=== PATIENT | female | born 1990 | race Caucasian/White ===

== ENCOUNTER → 2018-04-15 14:38 | Outpatient (CLI) | payer MEDICAID, SELFPAY ==
--- NOTE | 2018-04-15 16:05 | FLU_PTH ---
PATIENT: GREG LALA LOC: [facility] U#:[id number] AGE/SX: 34/F ROOM: RE04/15/[address]: Dr. Martita Avalos MD : 1990 BED: DIS: SPEC #: [id number] RECD: 04/16/18 14:12 STATUS: GEORGES REMarlen #: [id number] RUPALI: 04/15/18 16:[address]: Martita Avalos DEPT: CYTOLOGY RECD BY: Leoncio Mckeon ENTERED: 04/19/18 08:52 SP TYPE: Fluid OTHR DR: No Primary Care Phys Tissues: A - Thyroid gland, NOS B - Thyroid gland, NOS C - Thyroid gland, NOS D - Thyroid gland, NOS Procedures: Pap Stain (control) Special Stain Group II Surgery Specimen Level IV Cell Block Cytospin Fluid Cytology Other HEADER OPERATION: Ultrasound guided fine needle aspiration bilateral thyroid PRE-OP DIAGNOSIS: Thyroid nodules TISSUE SUBMITTED: A. FNA, right thyroid fluid, B. FNA, right thyroid 8 slides, C. FNA, left thyroid fluid, D. FNA, left thyroid 8 slides DIAGNOSIS CYTOLOGY A. Right thyroid fluid, FNA (cytospin and cell block): Negative for malignant cells. See cytology study and comment. B. Right thyroid nodule, FNA (smears): Consistent with benign colloid nodule with cystic changes. See cytology study and comment. C. Left thyroid fluid, FNA (cytospin and cell block): Negative for malignant cells. See cytology study and comment. D. Left thyroid nodule, FNA (smears): Consistent with benign follicular nodule. See cytology study and comment. SJ:rg 04/20/18 COMMENT Immediate cytologic evaluation to determine adequacy is not applicable. D. The findings may represent adenomatoid colloid nodule. Correlation with clinical, radiologic findings and appropriate follow up are necessary. Please make reference to previous specimen ([id number]) FNA, right thyroid nodule with diagnosis of consistent with cellular colloid nodule and FNA, left thyroid nodule with diagnosis of consistent with cellular colloid nodule with cystic changes. CYTOLOGY STUDY Slides are reviewed. A. The specimen consists of benign follicular cells and macrophages. B. The specimen is adequate for evaluation. The specimen consists of benign follicular cells, colloid and numerous macrophages. C. The specimen consists of benign follicular cells. D. The specimen is adequate for evaluation. The smears are cellular and consists of benign follicular cells and small amount of colloid. CYTOLOGY GROSS A. Received is 25 ml of beige hazy fluid labeled with the patient's name and and designated per the requisition as FNA right thyroid. Submitted for cytology preparation including cell block. B. Received are 8 smears labeled with the patient's name and designated per the requisition as FNA right thyroid. Submitted for staining. C. Received is 25 ml of cloudy brown fluid labeled with the patient's name and and designated per the requisition as FNA left thyroid. Submitted for cytology preparation including cell block. D. Received are 8 smears labeled with the patient's name and designated per the requisition as FNA left thyroid. Submitted for staining. / CC:cc 04/19/18 TC:5 CPT:42996 x2, 61422 x2, 96047 x2
== END ==
PROVIDERS: Visit Provider Surgery
DX: E04.1 Nontoxic single thyroid nodule (principal)
CPT/HCPCS: 88108; 88161; 88305; 88313

== ENCOUNTER 2019-12-08 13:05 | Emergency (ER) | payer MEDICAID, SELFPAY ==
[2019-12-08 13:05] VITALS: BP 122/78; PULSE 89; RESP 16; TEMP 36.1; O2SAT 99; BMI 29.9
--- NOTE | 2019-12-08 13:19 | ED.DCSUM_ITS ---
- ER Visit Summary Date of Service: 12/08/19 Chief Complaint: Right hand injury after tripping and falling going up steps. History of Present Illness: The patient is a 29 F no seen in past medical history. Was walking up steps. Tripped fell forward caught herself with her right hand injuring the right small finger metacarpal. She is right-hand dominant. No prior history or surgery to that hand. No other injuries. She did not hit her head. Physical Examination: Well-appearing young female. Vital signs stable afebrile. HEENT exam normal atraumatic nontender. C-spine nontender. Lungs are clear. Heart regular rhythm. No murmur. Chest were nontender. Abdomen soft nonte nder. Pelvic girdle intact. Left upper and both lower extremities are nontender with normal range of motion and strength and sensation. Her right shoulder elbow and wrist are nontender nonswollen. Her right hand is swollen and tender primarily over the small finger or fifth metacarpal. Most likely a fracture. Skin is closed. She is able to open and close her hand. Is neurovascular intact. Neurologically she is awake alert with no focal motor deficits. Test Results: Right hand 3 views read by myself and the radiologist shows a midshaft spiral fracture of the fifth or small metacarpal. I went over the x- ray with the patient's. Emergency Department Course and Treatment: Patient treated with [place] for pain. I suspect she has a broken right hand. Treatment Plan: Short arm ulnar gutter splint on the right hand. Ice and elevate. Motrin and [place] for pain. Follow-up with orthopedics. Disposition: Discharge Impression: Tripped and fell Acute right hand fifth or small metacarpal fracture. Short arm ulnar gutter splint by ER This note was generated with [employer] dictation software. It may contain incorrect words, spelling, and punctuation that were not noted in review of the chart prior to signing ED Disposition - Plan for ED Patient: Referrals: Care Physician,No Primary [Primary Care Provider] -
--- NOTE | 2019-12-08 13:20 | RAD_ITS ---
STUDY: X-RAY - RIGHT HAND REASON FOR EXAM: Female, 29 years old. FELL UP THE STAIRS. PAIN 3RD-5TH METACARPALS TECHNIQUE: 3 view(s) of the hand. COMPARISON: None. FINDINGS: Normal radiocarpal articulation. Normal distal radioulnar joint. Normal visualized carpal bones. Normal carpal articulations Normal carpometacarpal articulation of the thumb. Normal second through fifth carpometacarpal joints. Nondisplaced spiral fracture through the midportion of the fifth metacarpal. Normal metacarpophalangeal joint of the thumb. Normal interphalangeal joint of the thumb. Normal proximal and distal phalanges of the thumb. Normal metacarpophalangeal joints of the second through fifth fingers. Normal proximal and distal interphalangeal joints of the second through fifth fingers. Normal phalanges of the second through fifth fingers. Soft tissue swelling. RAD/Hand Min 3 Views IMPRESSION: Nondisplaced spiral fracture through the midportion of the fifth metacarpal with overlying soft tissue swelling. Electronically Signed: Shahriar Munoz, at 13:39 EDT , Service support ,
[2019-12-08] MEDS: HYDROcodone Bitartrate/Apap 5/325 Tablet PO (13:25)
--- NOTE | 2019-12-08 14:03 | DCINST.ED_ITS ---
ED Disposition - Plan for ED Patient: Disposition: Home or Assisted Living Instructions: FRACTURE, Hand (Closed) Prescriptions: Hydrocodone Bitart/Apap 5-325 [[place] 5MG-325MG] 1 - 2 tab PO Q4H PRN PRN 5 Days #14 tab PRN Reason: Pain Prescription Printed Referrals: Stewart Garcia MD [STAFF PHYSICIAN] - As soon as possible Additional Instructions: Ice and elevate right hand to decrease pain and swelling. [place] for pain and Motrin for pain and swelling. Follow-up with orthopedic physician to have further evaluation hand and most likely casting.
== END 2019-12-08 14:17 | disposition home or self-care (01) ==
PROVIDERS: Emergency Provider Emergency Medicine
DX: S62.306A Unspecified fracture of fifth metacarpal bone, right hand, initial encounter for closed fracture (principal); F17.220 Nicotine dependence, chewing tobacco, uncomplicated; W10.9XXA Fall (on) (from) unspecified stairs and steps, initial encounter
CPT/HCPCS: 73130; 99283

== ENCOUNTER → 2020-10-22 11:08 | Outpatient (CLI) | payer MEDICAID, SELFPAY ==
[2020-10-24 09:46] LABS: HPV APTIMA, High Risk Negative (Negative)
[2020-10-24 09:47] LABS: HPV Reflexed? YES, CHARGE PATIENT
== END ==
PROVIDERS: Visit Provider Student in an Organized Health Care Education/Training Program
DX: Z12.4 Encounter for screening for malignant neoplasm of cervix (principal)
CPT/HCPCS: 87624; 88175; G0145

== ENCOUNTER → 2021-04-16 15:10 | Outpatient (CLI) | payer MEDICAID, SELFPAY ==
--- NOTE | 2021-04-16 11:30 | LES_PTH ---
PATIENT: GREG LALA LOC: [facility] U#:[id number] AGE/SX: 34/F ROOM: RE04/16/[address]: Dr. Abram Sutherland MD : 1990 BED: DIS: SPEC #: [id number] RECD: 04/17/21 08:35 STATUS: GEORGES SRINIVAS #: [id number] RUPALI: 04/16/21 11:[address]: Abram Sutherland DEPT: SURGICAL PATHOLOGY RECD BY: Toyin Oshea ENTERED: 04/17/21 08:35 SP TYPE: Lesion OTHR DR: No Primary Care Phys Tissues: Skin of eyelid, NOS Procedures: Surgery Specimen Level IV HEADER OPERATION: Lesion removal left upper lid PRE-OP DIAGNOSIS: Present since May 2020, papilloma, increased size TISSUE SUBMITTED: Lesion left upper lid MICROSCOPIC DIAGNOSIS Lesion of left upper eyelid, biopsy: Consistent with benign fibroepithelial polyp. AM:richelle 04/18/2021 MICROSCOPIC DESCRIPTION Slides are reviewed. GROSS DESCRIPTION Received in fixative is one container labeled with the patient's name and designated left upper lid. The specimen consists of a piece of key-white skin measuring 0.2 x 0.2 x 0.1 cm. The entire specimen is submitted in one cassette. / SJ:richelle 04/17/21 TC:1 CPT: 83384
== END ==
PROVIDERS: Visit Provider Ophthalmology
DX: D23.121 Other benign neoplasm of skin of left upper eyelid, including canthus (principal)
CPT/HCPCS: 88305

== ENCOUNTER 2021-05-25 18:42 | Emergency (ER) | payer MEDICAID, SELFPAY ==
[2021-05-25 18:43] VITALS: BP 119/81; PULSE 86; RESP 20; TEMP 36.7; O2SAT 97; BMI 34.0
--- NOTE | 2021-05-25 19:47 | RAD_ITS ---
INDICATION: cough EXAMINATION/TECHNIQUE: X-RAY - XR Chest 1 View COMPARISON: PA and lateral views of the chest 10/05/2012. FINDINGS: LINES/DEVICES: None. LUNGS: No consolidation, edema or effusion. No pneumothorax. MEDIASTINUM AND CARDIOVASCULAR STRUCTURES: Cardiac silhouette not enlarged. Central airways and mediastinal contour are unremarkable. BONES AND SOFT TISSUES: Unremarkable. RAD/Chest 1 View IMPRESSION: No radiographic evidence of acute cardiopulmonary disease. Electronically Signed: Naveen Mathew DO at 20:53 EDT Tel , Service support ,
--- NOTE | 2021-05-25 21:09 | EX.ED.VIS.UR ---
HPI HPI - URI History of Present Illness Chief Complaint: Cough Narrative Narrative: Patient presenting with nasal congestion and decreased taste that she noticed while she was eating tonight. Patient states she started to notice this yesterday. Has not had a fever, or shortness of breath. She states she does have a mild cough. She has no body aches, chills, fevers, she has no nausea or vomiting. She states he is not exposed in anybody that is ill. She states she wants to be tested because she has a wedding in 2 weeks. ROS ROS ED Constitutional Constitutional ED: Denies chills or fever(s) Eyes Eyes: Denies blurry vision or diplopia ENT ENT ED: Denies rhinorrhea or sore throat Cardiovascular Cardiovascular: Denies chest pain or palpitations Respiratory/Chest Respiratory/Chest: Reports cough; Denies dyspnea Gastrointestinal Gastrointestinal: Denies abdominal pain, nausea or vomiting Genitourinary Genitourinary ED: Denies dysuria or hematuria Musculoskeletal Musculoskeletal: Denies arthralgias or myalgias Integumentary Denies Abrasions or rash Neurologic Neurologic: Denies headache(s) or paresthesias PFSH PFS Home Medications NK 05/25/21 [History Last Taken Unknown] Allergy/AdvReac Type Severity Reaction Status Date / Time No Known Allergies Allergy Verified 06/09/17 12:35 Social History Smoking Status: Current every day smoker tobacco type: cigarettes EXAM Physical Exam Const Vital Signs: 05/25/21 18:43 05/25/21 20:09 Temperature 98.1 F Temperature Source Temporal Pulse Rate 86 Respiratory Rate 20 H Respiratory Effort Normal Blood Pressure 119/81 H Blood Pressure Mean 93 Pulse Ox 97 Oxygen Delivery Method Room Air Positive well nourished General Appearance ED: NAD; Negative for pallor HEENT normocephalic and atraumatic Eyes PERRL and EOMs intact bilaterally Resp normal respiratory effort and clear to auscultation bilaterally Cardio Rate: regular rate Rhythm: regular rhythm Neuro oriented x3 and CN's II-XII intact bilaterally Sensorium / Orientation: alert Psych mental status grossly normal Skin General Skin Exam: Negative for jaundice or pallor Lesions: no lesions Rashes: no rashes MDM MDM MDM Narrative Medical decision making narrative: Patient's Covid test is negative. Chest x-ray on my interpretation shows no acute cardiopulmonary process. Patient's vital signs are stable she is afebrile. Her only symptom is nasal congestion with a mild cough. Patient counseled if she continues to have symptoms she should be retested on the fourth or fifth day. She is counseled if she has any severe or worsening symptoms she can return to the ED. Patient stable discharge at this time. Impression: 1. Viral syndrome Radiography Diagnostic Testing: Radiology Impression Chest X-Ray 05/25/21 19:47 IMPRESSION: No radiographic evidence of acute cardiopulmonary disease. Electronically Signed: Naveen Mathew DO at 20:53 EDT Tel , Service support , Discharge Plan Triage Chief Complaint: Cough ED Provider: Hamzah Lemus Dx/Rx/DC Orders Instructions: ED Viral Syndrome (Adult) Prescriptions: No Action NK RF: 0 Primary Care Provider: Jax Geronimo,Out of Referrals: [facility] Doctor,Out of [Primary Care Provider] - Disposition Disposition: Home, Self Care
[2021-05-25 21:17] VITALS: BP 118/72; PULSE 79; RESP 18; O2SAT 97
== END 2021-05-25 21:17 | disposition home or self-care (01) ==
LOC: ED 21:18
PROVIDERS: Emergency Provider Student in an Organized Health Care Education/Training Program
DX: B34.9 Viral infection, unspecified (principal); F17.210 Nicotine dependence, cigarettes, uncomplicated
CPT/HCPCS: 71045; 87426; 99282

== ENCOUNTER 2021-06-17 07:44 | Emergency (ER) | payer MEDICAID, SELFPAY ==
[2021-06-17 07:45] VITALS: BP 109/71; PULSE 88; RESP 16; TEMP 36.1; O2SAT 98; BMI 33.8
[2021-06-17 07:53] VITALS: O2SAT 98
[2021-06-17] MEDS: Ibuprofen 600 MG Tablet PO (08:19)
--- NOTE | 2021-06-17 08:29 | EX.ED.DYSGE1 ---
HPI History of Present Illness Chief Complaint: Cold Sx Informant: patient Narrative Narrative: Patient is a 30-year-old female presenting for concern for . Patient states her daughter tested positive this morning for Covid. Patient is complaint of cough, headache and myalgias. She states she has had symptoms for the past few days and could not sleep at all last night because she is having such bad body aches. She has had Tylenol at 5 AM. Patient notes she had head cold but her symptoms had since resolved. She is not been tested for Covid. She states her cough is nonproductive. She denies any shortness of breath or difficulty breathing. No associated chest pain. Did not have any fever. No other complaints at this time. [facility] Medical History Anxiety Home Medications escitalopram oxalate 10 mg PO DAILY 06/17/21 [History Last Taken Unknown] ibuprofen 600 mg PO Q6H PRN PRN #20 tab 06/17/21 [Rx Last Taken Unknown] Allergy/AdvReac Type Severity Reaction Status Date / Time No Known Allergies Allergy Verified 06/17/21 07:48 Social History Smoking Status: Current every day smoker tobacco type: cigarettes ROS ROS ED Constitutional Constitutional ED: Reports chills and other; Denies fever(s) or malaise Eyes Eyes: Denies blurry vision or loss of vision ENT ENT ED: Reports other Details: nasal congetion ; Denies rhinorrhea or sore throat Cardiovascular Cardiovascular: Denies chest pain or dizziness Respiratory/Chest Respiratory/Chest: Reports cough; Denies dyspnea, dyspnea on exertion or sputum Gastrointestinal Gastrointestinal: Denies diarrhea, nausea or vomiting Genitourinary Genitourinary ED: Denies dysuria or hematuria Musculoskeletal Musculoskeletal: Reports myalgias; Denies arthralgias Integumentary Denies rash or wounds Neurologic Neurologic: Reports headache(s); Denies focal weakness or weakness Psychiatric Psychiatric: Denies anxiety or behavioral changes EXAM Physical Exam Const Vital Signs: 06/17/21 07:45 06/17/21 07:53 06/17/21 09:03 Temperature 96.9 F L Temperature Source Temporal Pulse Rate 88 71 Respiratory Rate 16 15 Respiratory Effort Normal Non-Labored Respiratory Depth Normal Respiratory Pattern Normal Blood Pressure 109/71 124/69 H Blood Pressure Mean 83 Pulse Ox 98 98 Oxygen Delivery Method Room Air Room Air Positive well nourished and well developed General Appearance ED: well developed HEENT Reports TM's clear and moist mucous membranes Tympanic Membrane ED: Yes TM's clear Eyes PERRL and EOMs intact bilaterally Neck no lymphadenopathy, supple and no JVD Chest Wall inspection of chest normal Resp normal respiratory effort and clear to auscultation bilaterally Cardio regular rate, regular rhythm and no murmurs GI normal to inspection, nondistended, normoactive bowel sounds Extremity normal to inspection General Extremety ED: Negative for edema General Extremity: Negative for edema Neuro oriented x3 and CN's II-XII intact bilaterally Sensorium / Orientation: alert Motor Exam: Negative for general weakness Psych mental status grossly normal Skin no rashes or lesions noted MDM MDM MDM Narrative Medical decision making narrative: Patient is coming in with viral symptoms. She is had a positive Covid exposure. Should be tested for Covid. Due to patient's BMI she would be a candidate for monoclonal antibody. She is otherwise well-appearing with normal vital signs. She is given Motrin for symptom control in the ER. Covid test is positive. Patient is referred for monoclonal antibody given her BMI. Given return precautions and work note. Instructed to continue [id number] medications for symptoms. Discharge Plan Triage Chief Complaint: Cold Sx ED Provider: Kerri Dumont Dx/Rx/DC Orders Clinical Impression: COVID-19 virus infection Instructions: Coronavirus Disease 2019 (COVID-19): Caring for Yourself or Others Prescriptions: New ibuprofen 600 mg tablet 600 mg PO Q6H PRN PRN (Reason: fever or pain) Qty: 20 RF: 0 No Action escitalopram oxalate 10 mg tablet 10 mg PO DAILY RF: 0 Other Ambulatory Orders: COVID Outpatient Monoclonal Antibody Referral (Routine) Timeframe: 1 Day Facility: [facility] - Location: [facility] Ordered By: Dr. Kerri Dumont Primary Care Provider: Radha Lewis Referrals: Radha Lewis MD [Primary Care Provider] - Disposition Disposition: Home, Self Care Discharge Date/Time: 06/17/21 09:05
[2021-06-17 09:03] VITALS: BP 124/69; PULSE 71; RESP 15; O2SAT 98
== END 2021-06-17 09:05 | disposition home or self-care (01) ==
PROVIDERS: Emergency Provider Emergency Medicine; PCP Internal Medicine
DX: U07.1 COVID-19 (principal); F17.210 Nicotine dependence, cigarettes, uncomplicated; Z79.899 Other long term (current) drug therapy
CPT/HCPCS: 87426; 99282